=== PATIENT | male | born 1995 | race Caucasian/White ===

== ENCOUNTER → 2021-09-05 | Outpatient (CLI) | payer OTHER | LOC: M RAD 12:51 | PROVIDERS: ATTEND Orthopaedic Surgery | DX: M51.26 Other intervertebral disc displacement, lumbar region (principal) ==

== ENCOUNTER 2022-10-05 15:04 | Inpatient (IN) | payer OTHER ==
[~2022-10-05] VITALS: Ht 193 cm; Wt 99.8 kg
[2022-10-05] VITALS (11 sets, daily range): BP systolic 116–170; BP diastolic 62–85; O2SAT 100
[2022-10-05] MEDS ORDERED: ACE65ERTAB PO (15:16)
[2022-10-05] MEDS ORDERED: GABA-283 PO (15:16)
[2022-10-05] MEDS ORDERED: MIDAZOLAM 5MG 5ML VIAL (FOR CHEST TUBE INSERTIONS) IV STA (16:11)
[2022-10-05 16:13] LABS: BASO # 0.1 10^3/uL (0.0-0.2); BASO % 0.5 % (0.0-1.0); EOS # 0.1 10^3/uL (0.0-0.5); EOS % 0.8 % (0.0-3.0); HEMATOCRIT 47.8 % (42.0-52.0); HEMOGLOBIN 15.7 g/dl (13.5-17.5); LYMPH # 2.3 10^3/uL (1.5-5.0); MEAN CORPUSCULAR HEMOGLOBIN 30.5 pg (27.0-33.0); MEAN CORPUSCULAR HGB CONC 32.8 g/dl (32.0-36.5); MONO # 0.7 10^3/uL (0.0-0.8); MONO % 6.8 % (2.0-8.0); NEUTROPHILS # 6.5 10^3/uL (1.5-8.5); NEUTROPHILS % 67.6 % (36.0-66.0); PLATELET COUNT, AUTOMATED 284 10^3/uL (150-450); RED BLOOD COUNT 5.14 10^6/uL (4.30-6.10); WHITE BLOOD COUNT 9.6 10^3/uL (4.0-10.0)
[2022-10-05] MEDS ORDERED: LIDOCAINE 1% MDV 20ML VIAL SC PRN (16:15)
[2022-10-05] MEDS ORDERED: flumazeniL 0.5MG/5ML VIAL IV PRN (16:15)
[2022-10-05] MEDS ORDERED: PERCOCET 5MG/325MG TAB PO PRN ×3 (16:30→16:35)
[2022-10-05] MEDS ORDERED: BISACODYL 10MG SUPP PR PRN (16:30)
[2022-10-05] MEDS ORDERED: LEVALBUTEROL 1.25MG 0.5ML CONCENTRATE NEB NEB PRN (16:30)
[2022-10-05] MEDS ORDERED: ONDANSETRON 4MG 2ML VIAL IV PRN (16:30)
[2022-10-05] MEDS ORDERED: KCL 20MEQ IN D5/NS 1000ML 1,000 ML IV SCH (16:30)
[2022-10-05] MEDS ORDERED: ACETAMINOPHEN TAB 650MG DOSE (2X325MG) PO PRN (16:30)
[2022-10-05 16:35] LABS: ALBUMIN 4.3 G/DL (3.2-5.2); ALKALINE PHOSPHATASE 62 U/L (46-116); ALT/SGPT 20 U/L (7.0-40); AST/SGOT 17 U/L (<34); BILIRUBIN,DIRECT 0.1 MG/DL (<0.4); BILIRUBIN,TOTAL 0.4 MG/DL (0.3-1.2); BLOOD UREA NITROGEN 13 MG/DL (9-23); CALCIUM LEVEL 9.2 MG/DL (8.5-10.1); CARBON DIOXIDE LEVEL 26 MMOL/L (20-31); CHLORIDE LEVEL 105 MMOL/L (98-107); CREATININE FOR GFR 1.21 MG/DL (0.70-1.30); GLOMERULAR FILTRATION RATE > 60.0 (>60); GLUCOSE, FASTING 82 MG/DL (60-100); POTASSIUM SERUM 3.9 MMOL/L (3.5-5.1); SODIUM LEVEL 142 MMOL/L (136-145); TOTAL PROTEIN 7.3 G/DL (5.7-8.2)
[2022-10-05] MEDS ORDERED: MORPHINE 2 MG/ML 1ML VIAL IV PRN (16:35)
[2022-10-05 16:47] LABS: RSV AMPLIFICATION NEGATIVE (NEGATIVE)
[2022-10-05] MEDS ORDERED: MIDAZOLAM INJ 2MG/2ML VIAL As Ordered ONE ×2 (16:47→16:48)
[2022-10-05] MEDS ORDERED: MIDAZOLAM INJ 2MG/2ML VIAL IV ONE ×2 (17:15)
[2022-10-05] MEDS: KETOROLAC 30 MG/ML 1ML VIAL IV SCH ×2 (17:21→23:36)
[2022-10-05 17:51] LABS: ABG BASE EXCESS 0.9 (-2.0-2.0); ABG HCO3 25.5 MEQ/L (22.0-26.0); ABG O2 SATURATION 99.2 % (95.0-99.0); ABG PARTIAL PRESSURE CO2 40.7 mmHg (35.0-45.0); ABG PARTIAL PRESSURE O2 167.8 mmHg (75.0-100.0); ABG STANDARD HCO3 25.3 MEQ/L (22.0-26.0); ABG TOTAL CO2 26.8 MEQ/L (22.0-29.0); ABG pH (ARTERIAL) 7.415 UNITS (7.350-7.450)
[2022-10-05] MEDS: LEVALBUTEROL 1.25MG 0.5ML CONCENTRATE NEB NEB SCH (19:46)
[2022-10-05] MEDS: HEPARIN SOD (PORCINE) 5000UNITS/ML 1ML VIAL/SYRINGE SC SCH (20:30)
[2022-10-05] MEDS: DOCUSATE SODIUM 100MG CAPSULE PO SCH (20:30)
[2022-10-06] MEDS: LEVALBUTEROL 1.25MG 0.5ML CONCENTRATE NEB NEB SCH ×4 (01:17→20:00)
[2022-10-06 04:00] VITALS: BP 131/69
[2022-10-06 05:25] LABS: BASO % 0.3 % (0.0-1.0); EOS # 0.1 10^3/uL (0.0-0.5); EOS % 0.6 % (0.0-3.0); HEMATOCRIT 47.4 % (42.0-52.0); HEMOGLOBIN 15.5 g/dl (13.5-17.5); LYMPH # 2.2 10^3/uL (1.5-5.0); LYMPH % 20.5 % (24.0-44.0); MEAN CORPUSCULAR HEMOGLOBIN 30.7 pg (27.0-33.0); MEAN CORPUSCULAR HGB CONC 32.7 g/dl (32.0-36.5); MEAN CORPUSCULAR VOLUME 93.9 fl (80.0-96.0); MONO # 0.8 10^3/uL (0.0-0.8); MONO % 7.6 % (2.0-8.0); NEUTROPHILS # 7.5 10^3/uL (1.5-8.5); NEUTROPHILS % 70.6 % (36.0-66.0); PLATELET COUNT, AUTOMATED 230 10^3/uL (150-450); RED BLOOD COUNT 5.05 10^6/uL (4.30-6.10); WHITE BLOOD COUNT 10.5 10^3/uL (4.0-10.0)
[2022-10-06] MEDS: KETOROLAC 30 MG/ML 1ML VIAL IV SCH ×3 (05:43→18:20)
[2022-10-06 05:49] LABS: BLOOD UREA NITROGEN 13 MG/DL (9-23); CALCIUM LEVEL 8.9 MG/DL (8.5-10.1); CARBON DIOXIDE LEVEL 27 MMOL/L (20-31); CHLORIDE LEVEL 105 MMOL/L (98-107); CREATININE FOR GFR 1.21 MG/DL (0.70-1.30); GLOMERULAR FILTRATION RATE > 60.0 (>60); GLUCOSE, FASTING 95 MG/DL (60-100); POTASSIUM SERUM 4.6 MMOL/L (3.5-5.1); SODIUM LEVEL 139 MMOL/L (136-145)
[2022-10-06 05:51] LABS: ABG BASE EXCESS -1.7 (-2.0-2.0); ABG HCO3 22.6 MEQ/L (22.0-26.0); ABG O2 SATURATION 97.4 % (95.0-99.0); ABG PARTIAL PRESSURE CO2 37.3 mmHg (35.0-45.0); ABG STANDARD HCO3 23.1 MEQ/L (22.0-26.0); ABG TOTAL CO2 23.8 MEQ/L (22.0-29.0); ABG pH (ARTERIAL) 7.401 UNITS (7.350-7.450)
[2022-10-06 07:40] VITALS: BP 137/67
[2022-10-06] MEDS: DOCUSATE SODIUM 100MG CAPSULE PO SCH ×2 (08:17→20:36)
[2022-10-06] MEDS: HEPARIN SOD (PORCINE) 5000UNITS/ML 1ML VIAL/SYRINGE SC SCH ×2 (08:18→20:36)
[2022-10-06] MEDS: PANTOPRAZOLE 40MG TAB (PROTONIX) PO SCH (08:18)
[2022-10-06] MEDS ORDERED: MOM 30ML SUSPENSION UDC PO SCH (09:00)
[2022-10-06 11:43] VITALS: BP 136/65
[2022-10-06] MEDS ORDERED: FUROSEMIDE 20MG/2ML VIAL IV ONE (12:00)
[2022-10-06] MEDS ORDERED: GABA-282 PO (12:13)
[2022-10-06] MEDS ORDERED: HOME MED LIST COMPLETE! XX SCH (12:15)
[2022-10-06] MEDS ORDERED: ACET-683 PO (12:17)
[2022-10-06] MEDS: GABAPENTIN 300 MG CAP PO SCH ×2 (15:29→20:35)
[2022-10-06 16:00] VITALS: BP 138/65
[2022-10-06 20:00] VITALS: BP 135/61
[2022-10-06 23:29] VITALS: BP 121/56
[2022-10-07] MEDS: KETOROLAC 30 MG/ML 1ML VIAL IV SCH ×2 (00:08→06:29)
[2022-10-07] MEDS: LEVALBUTEROL 1.25MG 0.5ML CONCENTRATE NEB NEB SCH ×4 (01:27→20:17)
[2022-10-07 03:30] VITALS: BP 114/56
[2022-10-07 06:08] LABS: BASO % 0.4 % (0.0-1.0); EOS # 0.1 10^3/uL (0.0-0.5); HEMATOCRIT 45.2 % (42.0-52.0); HEMOGLOBIN 14.9 g/dl (13.5-17.5); LYMPH % 28.3 % (24.0-44.0); MEAN CORPUSCULAR VOLUME 94.2 fl (80.0-96.0); MONO # 0.7 10^3/uL (0.0-0.8); MONO % 10.7 % (2.0-8.0); NEUTROPHILS % 58.3 % (36.0-66.0); PLATELET COUNT, AUTOMATED 225 10^3/uL (150-450); WHITE BLOOD COUNT 6.9 10^3/uL (4.0-10.0)
[2022-10-07 06:28] LABS: BLOOD UREA NITROGEN 15 MG/DL (9-23); CARBON DIOXIDE LEVEL 29 MMOL/L (20-31); CHLORIDE LEVEL 107 MMOL/L (98-107); GLOMERULAR FILTRATION RATE > 60.0 (>60); GLUCOSE, FASTING 92 MG/DL (60-100); POTASSIUM SERUM 4.5 MMOL/L (3.5-5.1); SODIUM LEVEL 142 MMOL/L (136-145)
[2022-10-07 07:15] VITALS: BP 115/69
[2022-10-07] MEDS: HEPARIN SOD (PORCINE) 5000UNITS/ML 1ML VIAL/SYRINGE SC SCH ×2 (08:28→20:10)
[2022-10-07] MEDS: PANTOPRAZOLE 40MG TAB (PROTONIX) PO SCH (08:29)
[2022-10-07] MEDS: DOCUSATE SODIUM 100MG CAPSULE PO SCH ×2 (08:29→20:07)
[2022-10-07] MEDS: GABAPENTIN 300 MG CAP PO SCH ×2 (08:29→20:10)
[2022-10-07 10:48] LABS: INR 1.03; PROTHROMBIN TIME 13.7 SECONDS (12.5-14.5)
[2022-10-07 10:49] LABS: PARTIAL THROMBOPLASTIN TIME 30.9 SECONDS (24.8-34.2)
[2022-10-07 11:25] VITALS: BP 138/67
[2022-10-07 15:19] VITALS: BP 122/61
[2022-10-07 20:00] VITALS: BP 138/62
[2022-10-08] VITALS: BP 114/59
[2022-10-08] MEDS: LEVALBUTEROL 1.25MG 0.5ML CONCENTRATE NEB NEB SCH ×4 (02:00→19:46)
[2022-10-08 04:00] VITALS: BP 117/89
[2022-10-08 07:03] LABS: BASO % 0.5 % (0.0-1.0); EOS # 0.1 10^3/uL (0.0-0.5); EOS % 2.4 % (0.0-3.0); HEMOGLOBIN 14.6 g/dl (13.5-17.5); LYMPH # 1.7 10^3/uL (1.5-5.0); LYMPH % 28.9 % (24.0-44.0); MEAN CORPUSCULAR HEMOGLOBIN 30.5 pg (27.0-33.0); MEAN CORPUSCULAR HGB CONC 32.4 g/dl (32.0-36.5); MEAN CORPUSCULAR VOLUME 94.1 fl (80.0-96.0); MONO # 0.5 10^3/uL (0.0-0.8); MONO % 8.4 % (2.0-8.0); NEUTROPHILS # 3.5 10^3/uL (1.5-8.5); NEUTROPHILS % 59.6 % (36.0-66.0); PLATELET COUNT, AUTOMATED 224 10^3/uL (150-450); RED BLOOD COUNT 4.78 10^6/uL (4.30-6.10); WHITE BLOOD COUNT 5.9 10^3/uL (4.0-10.0)
[2022-10-08 07:35] LABS: BLOOD UREA NITROGEN 11 MG/DL (9-23); CALCIUM LEVEL 9.2 MG/DL (8.5-10.1); CARBON DIOXIDE LEVEL 28 MMOL/L (20-31); CHLORIDE LEVEL 107 MMOL/L (98-107); GLOMERULAR FILTRATION RATE > 60.0 (>60); GLUCOSE, FASTING 90 MG/DL (60-100); POTASSIUM SERUM 4.5 MMOL/L (3.5-5.1); SODIUM LEVEL 140 MMOL/L (136-145)
[2022-10-08 08:00] VITALS: BP 131/97
[2022-10-08] MEDS: DOCUSATE SODIUM 100MG CAPSULE PO SCH ×2 (09:00→20:06)
[2022-10-08] MEDS: PANTOPRAZOLE 40MG TAB (PROTONIX) PO SCH (09:29)
[2022-10-08] MEDS: HEPARIN SOD (PORCINE) 5000UNITS/ML 1ML VIAL/SYRINGE SC SCH (09:29)
[2022-10-08] MEDS: GABAPENTIN 300 MG CAP PO SCH ×2 (09:30→20:06)
[2022-10-08 12:00] VITALS: BP 141/69
[2022-10-08 16:00] VITALS: BP 145/67
[2022-10-08 19:29] VITALS: BP 142/65
[2022-10-09] VITALS (39 sets, daily range): BP systolic 87–156; BP diastolic 51–81
[2022-10-09] MEDS: LEVALBUTEROL 1.25MG 0.5ML CONCENTRATE NEB NEB SCH ×2 (01:19→08:27)
[2022-10-09 07:24] LABS: BASO # 0.1 10^3/uL (0.0-0.2); BASO % 0.9 % (0.0-1.0); EOS # 0.2 10^3/uL (0.0-0.5); LYMPH # 1.7 10^3/uL (1.5-5.0); LYMPH % 31.4 % (24.0-44.0); MEAN CORPUSCULAR HEMOGLOBIN 30.8 pg (27.0-33.0); MEAN CORPUSCULAR HGB CONC 32.6 g/dl (32.0-36.5); MEAN CORPUSCULAR VOLUME 94.7 fl (80.0-96.0); MONO # 0.4 10^3/uL (0.0-0.8); MONO % 8.2 % (2.0-8.0); NEUTROPHILS % 56.3 % (36.0-66.0); PLATELET COUNT, AUTOMATED 221 10^3/uL (150-450); RED BLOOD COUNT 4.54 10^6/uL (4.30-6.10); WHITE BLOOD COUNT 5.4 10^3/uL (4.0-10.0)
[2022-10-09 07:51] LABS: BLOOD UREA NITROGEN 13 MG/DL (9-23); CALCIUM LEVEL 8.8 MG/DL (8.5-10.1); CARBON DIOXIDE LEVEL 29 MMOL/L (20-31); CHLORIDE LEVEL 106 MMOL/L (98-107); CREATININE FOR GFR 1.16 MG/DL (0.70-1.30); GLOMERULAR FILTRATION RATE > 60.0 (>60); GLUCOSE, FASTING 90 MG/DL (60-100); POTASSIUM SERUM 4.6 MMOL/L (3.5-5.1); SODIUM LEVEL 140 MMOL/L (136-145)
[2022-10-09] MEDS: ALBUTEROL SULFATE 2.5MG/0.5ML INH NEB SOLN NEB SCH ×3 (08:00→21:00)
[2022-10-09] MEDS: DOCUSATE SODIUM 100MG CAPSULE PO SCH ×2 (09:00→21:40)
[2022-10-09] MEDS: GABAPENTIN 300 MG CAP PO SCH ×2 (09:00→21:40)
[2022-10-09] MEDS: PANTOPRAZOLE 40MG TAB (PROTONIX) PO SCH (09:00)
[2022-10-09] MEDS ORDERED: ceFAZolin SOD 2 GM in IV 1 EA IV ONE (09:45)
[2022-10-09] MEDS ORDERED: CETACAINE SPRAY 5GM As Ordered ONE (13:13)
[2022-10-09] MEDS ORDERED: MUPIROCIN 2% OINT 22 GM TUBE As Ordered ONE (13:13)
[2022-10-09] MEDS ORDERED: BUPIVACAINE LIPOSOME/PF 1.3% 20ML VIAL (13.3MG/ML)(EXPAREL) As Ordered ONE (13:14)
[2022-10-09] MEDS ORDERED: BUPIVACAINE HCL 0.5% 30ML VIAL As Ordered ONE (13:14)
[2022-10-09] MEDS ORDERED: STERILE TALC POWDER 3GM VIAL As Ordered ONE (13:24)
[2022-10-09] MEDS ORDERED: TALCAIR POWDER BLOWER (CAN ONLY BE USED WITH 3GM TALC VIAL) XX ONE (13:24)
[2022-10-09] MEDS ORDERED: ROCURONIUM BROMIDE 50MG/5ML VIAL As Ordered ONE ×2 (13:52→16:29)
[2022-10-09] MEDS ORDERED: SUGAMMADEX SODIUM 500 MG/5 ML VIAL (BRIDION) As Ordered ONE (13:52)
[2022-10-09] MEDS ORDERED: propofoL 200 MG/20 ML VIAL As Ordered ONE (13:52)
[2022-10-09] MEDS ORDERED: KETOROLAC 60MG 2ML VIAL As Ordered ONE (13:52)
[2022-10-09] MEDS ORDERED: LIDOCAINE 2% 100MG/5ML SDV (FOR ANES.) As Ordered ONE (13:52)
[2022-10-09] MEDS ORDERED: ONDANSETRON 4MG 2ML VIAL As Ordered ONE (13:52)
[2022-10-09] MEDS ORDERED: MIDAZOLAM INJ 2MG/2ML VIAL As Ordered ONE (14:03)
[2022-10-09] MEDS ORDERED: fentaNYL 250 MCG/5 ML INJECTION As Ordered ONE (14:03)
[2022-10-09] MEDS ORDERED: ONDANSETRON 4MG 2ML VIAL IV PRN ×4 (14:10→18:15)
[2022-10-09] MEDS ORDERED: METOCLOPRAMIDE INJ 10MG/2ML VIAL IV PRN ×2 (14:10→17:50)
[2022-10-09] MEDS ORDERED: NALBUPHINE HCL 10 MG/ML 1ML AMP IV PRN ×2 (14:10→17:50)
[2022-10-09] MEDS ORDERED: EPIDURAL/PCA KEYS XX PRN ×2 (14:10→17:50)
[2022-10-09] MEDS ORDERED: diphenhydrAMINE 50MG/ML VIAL IV PRN ×2 (14:10→17:50)
[2022-10-09] MEDS ORDERED: NALOXONE INJ 0.4MG/1ML VIAL IV PRN ×2 (14:10→17:50)
[2022-10-09] MEDS ORDERED: LR 1,000 ML IV SCH ×3 (14:30→18:15)
[2022-10-09] MEDS ORDERED: ceFAZolin 2 GM/D5W 50 ML IV BAG As Ordered ONE (14:44)
[2022-10-09] MEDS: fentaNYL 100 MCG/2 ML INJECTION IV PRN ×5 (15:17→18:21)
[2022-10-09] MEDS: MIDAZOLAM INJ 2MG/2ML VIAL IV PRN ×3 (15:21→18:23)
[2022-10-09] MEDS ORDERED: ACETAMINOPHEN 1000MG 100ML IV BAG As Ordered ONE (16:25)
[2022-10-09] MEDS ORDERED: HYDROmorphone HCL 2MG/ML 1ML VIAL As Ordered ONE (17:46)
[2022-10-09] MEDS ORDERED: fentaNYL 100 MCG/2 ML INJECTION IV PRN ×2 (17:50→18:15)
[2022-10-09] MEDS ORDERED: oxyCODONE 5MG TAB PO PRN ×2 (17:50→18:15)
[2022-10-09] MEDS ORDERED: FENTANYL/BUPIVACAINE/NACL BAG 250 ML EPIDURAL SCH ×2 (17:50→19:13)
[2022-10-09] MEDS: ceFAZolin SOD 1 GM in D5W MINI-BAG PLUS 50 ML IV SCH (18:00)
[2022-10-09] MEDS: KETOROLAC 30 MG/ML 1ML VIAL IV SCH (18:00)
[2022-10-09] MEDS: FENTANYL/BUPIVACAINE/NACL BAG 250 ML EPIDURAL SCH (18:06)
[2022-10-09 18:11] LABS: ABG BASE EXCESS -1.8 (-2.0-2.0); ABG HCO3 25.4 MEQ/L (22.0-26.0); ABG O2 SATURATION 95.6 % (95.0-99.0); ABG PARTIAL PRESSURE CO2 52.5 mmHg (35.0-45.0); ABG PARTIAL PRESSURE O2 84.4 mmHg (75.0-100.0); ABG pH (ARTERIAL) 7.303 UNITS (7.350-7.450)
[2022-10-09] MEDS ORDERED: HYDROMORPHONE HCL 0.5 MG/ 0.5 ML SYRINGE IV PRN (18:15)
[2022-10-09 18:17] LABS: BASO % 0.5 % (0.0-1.0); EOS # 0.1 10^3/uL (0.0-0.5); EOS % 1.5 % (0.0-3.0); HEMATOCRIT 44.7 % (42.0-52.0); HEMOGLOBIN 14.6 g/dl (13.5-17.5); LYMPH # 1.4 10^3/uL (1.5-5.0); LYMPH % 18.1 % (24.0-44.0); MEAN CORPUSCULAR HEMOGLOBIN 30.5 pg (27.0-33.0); MEAN CORPUSCULAR HGB CONC 32.7 g/dl (32.0-36.5); MEAN CORPUSCULAR VOLUME 93.5 fl (80.0-96.0); MONO # 0.3 10^3/uL (0.0-0.8); MONO % 3.8 % (2.0-8.0); NEUTROPHILS # 5.7 10^3/uL (1.5-8.5); NEUTROPHILS % 75.7 % (36.0-66.0); PLATELET COUNT, AUTOMATED 216 10^3/uL (150-450); RED BLOOD COUNT 4.78 10^6/uL (4.30-6.10); WHITE BLOOD COUNT 7.6 10^3/uL (4.0-10.0)
[2022-10-09] MEDS: KCL 20MEQ IN D5/NS 1000ML 1,000 ML IV SCH (18:25)
[2022-10-09 18:48] LABS: BLOOD UREA NITROGEN 13 MG/DL (9-23); CALCIUM LEVEL 8.4 MG/DL (8.5-10.1); CARBON DIOXIDE LEVEL 28 MMOL/L (20-31); CHLORIDE LEVEL 106 MMOL/L (98-107); CREATININE FOR GFR 1.03 MG/DL (0.70-1.30); GLOMERULAR FILTRATION RATE > 60.0 (>60); GLUCOSE, FASTING 122 MG/DL (60-100); POTASSIUM SERUM 4.7 MMOL/L (3.5-5.1); SODIUM LEVEL 138 MMOL/L (136-145)
[2022-10-09 19:11] LABS: ABG BASE EXCESS -2.2 (-2.0-2.0); ABG HCO3 24.5 MEQ/L (22.0-26.0); ABG O2 LITER FLOW 2; ABG PARTIAL PRESSURE O2 120.4 mmHg (75.0-100.0); ABG STANDARD HCO3 22.7 MEQ/L (22.0-26.0); ABG pH (ARTERIAL) 7.317 UNITS (7.350-7.450)
[2022-10-10] VITALS (21 sets, daily range): BP systolic 95–135; BP diastolic 51–69
[2022-10-10] MEDS: KETOROLAC 30 MG/ML 1ML VIAL IV SCH ×5 (00:40→23:57)
[2022-10-10] MEDS: ALBUTEROL SULFATE 2.5MG/0.5ML INH NEB SOLN NEB SCH ×4 (01:52→19:22)
[2022-10-10] MEDS: ceFAZolin SOD 1 GM in D5W MINI-BAG PLUS 50 ML IV SCH ×3 (02:22→18:14)
[2022-10-10 05:49] LABS: BASO % 0.1 % (0.0-1.0); HEMATOCRIT 41.6 % (42.0-52.0); HEMOGLOBIN 13.8 g/dl (13.5-17.5); LYMPH # 0.7 10^3/uL (1.5-5.0); LYMPH % 6.5 % (24.0-44.0); MEAN CORPUSCULAR HEMOGLOBIN 30.8 pg (27.0-33.0); MEAN CORPUSCULAR HGB CONC 33.2 g/dl (32.0-36.5); MEAN CORPUSCULAR VOLUME 92.9 fl (80.0-96.0); MONO # 0.8 10^3/uL (0.0-0.8); MONO % 6.6 % (2.0-8.0); NEUTROPHILS # 9.8 10^3/uL (1.5-8.5); NEUTROPHILS % 86.3 % (36.0-66.0); PLATELET COUNT, AUTOMATED 228 10^3/uL (150-450); RED BLOOD COUNT 4.48 10^6/uL (4.30-6.10); WHITE BLOOD COUNT 11.4 10^3/uL (4.0-10.0)
[2022-10-10 06:02] LABS: ABG BASE EXCESS -1.9 (-2.0-2.0); ABG O2 SATURATION 98.7 % (95.0-99.0); ABG PARTIAL PRESSURE CO2 39.7 mmHg (35.0-45.0); ABG PARTIAL PRESSURE O2 129.2 mmHg (75.0-100.0); ABG STANDARD HCO3 22.9 MEQ/L (22.0-26.0); ABG TOTAL CO2 24.2 MEQ/L (22.0-29.0)
[2022-10-10 06:27] LABS: BLOOD UREA NITROGEN 9 MG/DL (9-23); CALCIUM LEVEL 5.7 MG/DL (8.5-10.1); CARBON DIOXIDE LEVEL 20 MMOL/L (20-31); CHLORIDE LEVEL 114 MMOL/L (98-107); CREATININE FOR GFR 0.66 MG/DL (0.70-1.30); GLOMERULAR FILTRATION RATE > 60.0 (>60); GLUCOSE, FASTING 102 MG/DL (60-100); POTASSIUM SERUM 3.2 MMOL/L (3.5-5.1); SODIUM LEVEL 142 MMOL/L (136-145)
[2022-10-10] MEDS ORDERED: CALCIUM GLUCONATE 1,000 MG in D5W MINI-BAG PLUS 100 ML IV SCH (07:00)
[2022-10-10] MEDS ORDERED: POTASSIUM CHLORIDE 10% LIQ 20MEQ/15ML UDC PO ONE (07:00)
[2022-10-10] MEDS: KCL 20MEQ IN D5/NS 1000ML 1,000 ML IV SCH (07:57)
[2022-10-10 08:42] LABS: BLOOD UREA NITROGEN 13 MG/DL (9-23); CALCIUM LEVEL 9.3 MG/DL (8.5-10.1); CARBON DIOXIDE LEVEL 27 MMOL/L (20-31); CHLORIDE LEVEL 102 MMOL/L (98-107); CREATININE FOR GFR 0.93 MG/DL (0.70-1.30); GLOMERULAR FILTRATION RATE > 60.0 (>60); GLUCOSE, FASTING 125 MG/DL (60-100); POTASSIUM SERUM 4.5 MMOL/L (3.5-5.1); SODIUM LEVEL 136 MMOL/L (136-145)
[2022-10-10] MEDS: PANTOPRAZOLE 40MG TAB (PROTONIX) PO SCH (08:48)
[2022-10-10] MEDS: HEPARIN SOD (PORCINE) 5000UNITS/ML 1ML VIAL/SYRINGE SC SCH ×2 (08:48→20:18)
[2022-10-10] MEDS: MOM 30ML SUSPENSION UDC PO SCH (08:48)
[2022-10-10] MEDS: GABAPENTIN 300 MG CAP PO SCH ×2 (08:48→20:18)
[2022-10-10] MEDS: DOCUSATE SODIUM 100MG CAPSULE PO SCH ×2 (08:48→20:19)
[2022-10-10] MEDS: FENTANYL/BUPIVACAINE/NACL BAG 250 ML EPIDURAL SCH (10:27)
[2022-10-10 14:03] LABS: BLOOD UREA NITROGEN 14 MG/DL (9-23); CALCIUM LEVEL 8.9 MG/DL (8.5-10.1); CARBON DIOXIDE LEVEL 25 MMOL/L (20-31); CHLORIDE LEVEL 104 MMOL/L (98-107); CREATININE FOR GFR 1.02 MG/DL (0.70-1.30); GLOMERULAR FILTRATION RATE > 60.0 (>60); GLUCOSE, FASTING 107 MG/DL (60-100); POTASSIUM SERUM 4.3 MMOL/L (3.5-5.1); SODIUM LEVEL 137 MMOL/L (136-145)
[2022-10-11] VITALS (10 sets, daily range): BP systolic 104–128; BP diastolic 52–66
[2022-10-11] MEDS: ALBUTEROL SULFATE 2.5MG/0.5ML INH NEB SOLN NEB SCH ×4 (01:19→20:02)
[2022-10-11] MEDS: FENTANYL/BUPIVACAINE/NACL BAG 250 ML EPIDURAL SCH ×2 (01:44→17:22)
[2022-10-11] MEDS: ceFAZolin SOD 1 GM in D5W MINI-BAG PLUS 50 ML IV SCH ×2 (01:46→09:03)
[2022-10-11 05:37] LABS: BASO % 0.2 % (0.0-1.0); EOS # 0.1 10^3/uL (0.0-0.5); EOS % 0.8 % (0.0-3.0); HEMATOCRIT 42.2 % (42.0-52.0); HEMOGLOBIN 13.4 g/dl (13.5-17.5); LYMPH # 1.9 10^3/uL (1.5-5.0); LYMPH % 21.1 % (24.0-44.0); MEAN CORPUSCULAR HEMOGLOBIN 30.3 pg (27.0-33.0); MEAN CORPUSCULAR HGB CONC 31.8 g/dl (32.0-36.5); MEAN CORPUSCULAR VOLUME 95.5 fl (80.0-96.0); MONO % 11.9 % (2.0-8.0); NEUTROPHILS # 5.7 10^3/uL (1.5-8.5); NEUTROPHILS % 65.5 % (36.0-66.0); PLATELET COUNT, AUTOMATED 199 10^3/uL (150-450); RED BLOOD COUNT 4.42 10^6/uL (4.30-6.10); WHITE BLOOD COUNT 8.8 10^3/uL (4.0-10.0)
[2022-10-11 06:02] LABS: BLOOD UREA NITROGEN 18 MG/DL (9-23); CALCIUM LEVEL 8.9 MG/DL (8.5-10.1); CARBON DIOXIDE LEVEL 29 MMOL/L (20-31); CHLORIDE LEVEL 104 MMOL/L (98-107); CREATININE FOR GFR 1.13 MG/DL (0.70-1.30); GLOMERULAR FILTRATION RATE > 60.0 (>60); GLUCOSE, FASTING 92 MG/DL (60-100); POTASSIUM SERUM 4.5 MMOL/L (3.5-5.1); SODIUM LEVEL 138 MMOL/L (136-145)
[2022-10-11] MEDS: KETOROLAC 30 MG/ML 1ML VIAL IV SCH ×3 (06:25→17:17)
[2022-10-11] MEDS: MOM 30ML SUSPENSION UDC PO SCH (08:32)
[2022-10-11] MEDS: DOCUSATE SODIUM 100MG CAPSULE PO SCH ×2 (08:32→20:41)
[2022-10-11] MEDS: GABAPENTIN 300 MG CAP PO SCH ×2 (09:02→20:41)
[2022-10-11] MEDS: HEPARIN SOD (PORCINE) 5000UNITS/ML 1ML VIAL/SYRINGE SC SCH ×2 (09:02→20:41)
[2022-10-11] MEDS: PANTOPRAZOLE 40MG TAB (PROTONIX) PO SCH (09:02)
[2022-10-12] VITALS (9 sets, daily range): BP systolic 114–145; BP diastolic 57–70
[2022-10-12] MEDS: KETOROLAC 30 MG/ML 1ML VIAL IV SCH ×4 (00:11→17:39)
[2022-10-12] MEDS: ALBUTEROL SULFATE 2.5MG/0.5ML INH NEB SOLN NEB SCH ×4 (01:28→19:28)
[2022-10-12 05:55] LABS: BASO % 0.6 % (0.0-1.0); EOS # 0.1 10^3/uL (0.0-0.5); EOS % 2.1 % (0.0-3.0); HEMATOCRIT 32.8 % (42.0-52.0); LYMPH # 1.6 10^3/uL (1.5-5.0); LYMPH % 34.1 % (24.0-44.0); MEAN CORPUSCULAR HGB CONC 32.3 g/dl (32.0-36.5); MEAN CORPUSCULAR VOLUME 95.9 fl (80.0-96.0); MONO # 0.6 10^3/uL (0.0-0.8); MONO % 12.6 % (2.0-8.0); NEUTROPHILS # 2.4 10^3/uL (1.5-8.5); NEUTROPHILS % 50.4 % (36.0-66.0); PLATELET COUNT, AUTOMATED 167 10^3/uL (150-450); RED BLOOD COUNT 3.42 10^6/uL (4.30-6.10); WHITE BLOOD COUNT 4.8 10^3/uL (4.0-10.0)
[2022-10-12 05:58] LABS: HEMOGLOBIN 10.6 g/dl (13.5-17.5)
[2022-10-12] MEDS: FENTANYL/BUPIVACAINE/NACL BAG 250 ML EPIDURAL SCH ×2 (06:12→20:16)
[2022-10-12 07:32] LABS: BLOOD UREA NITROGEN 12 MG/DL (9-23); CALCIUM LEVEL 8.9 MG/DL (8.5-10.1); CARBON DIOXIDE LEVEL 30 MMOL/L (20-31); CHLORIDE LEVEL 103 MMOL/L (98-107); CREATININE FOR GFR 0.97 MG/DL (0.70-1.30); GLOMERULAR FILTRATION RATE > 60.0 (>60); GLUCOSE, FASTING 91 MG/DL (60-100); POTASSIUM SERUM 4.2 MMOL/L (3.5-5.1); SODIUM LEVEL 137 MMOL/L (136-145)
[2022-10-12 08:38] LABS: BASO % 0.7 % (0.0-1.0); EOS # 0.1 10^3/uL (0.0-0.5); EOS % 2.3 % (0.0-3.0); HEMATOCRIT 41.6 % (42.0-52.0); LYMPH # 1.7 10^3/uL (1.5-5.0); LYMPH % 28.9 % (24.0-44.0); MEAN CORPUSCULAR HEMOGLOBIN 31.4 pg (27.0-33.0); MEAN CORPUSCULAR HGB CONC 32.9 g/dl (32.0-36.5); MEAN CORPUSCULAR VOLUME 95.2 fl (80.0-96.0); MONO # 0.7 10^3/uL (0.0-0.8); MONO % 11.7 % (2.0-8.0); NEUTROPHILS # 3.4 10^3/uL (1.5-8.5); NEUTROPHILS % 56.2 % (36.0-66.0); PLATELET COUNT, AUTOMATED 214 10^3/uL (150-450); RED BLOOD COUNT 4.37 10^6/uL (4.30-6.10)
[2022-10-12] MEDS: HEPARIN SOD (PORCINE) 5000UNITS/ML 1ML VIAL/SYRINGE SC SCH ×2 (08:56→20:30)
[2022-10-12] MEDS: PANTOPRAZOLE 40MG TAB (PROTONIX) PO SCH (08:56)
[2022-10-12] MEDS: GABAPENTIN 300 MG CAP PO SCH ×2 (08:56→20:30)
[2022-10-12] MEDS: DOCUSATE SODIUM 100MG CAPSULE PO SCH ×2 (08:56→21:00)
[2022-10-12] MEDS: MOM 30ML SUSPENSION UDC PO SCH (08:57)
[2022-10-12 09:10] LABS: HEMOGLOBIN 13.7 g/dl (13.5-17.5)
[2022-10-13] MEDS: KETOROLAC 30 MG/ML 1ML VIAL IV SCH ×4 (00:35→17:15)
[2022-10-13] MEDS: ALBUTEROL SULFATE 2.5MG/0.5ML INH NEB SOLN NEB SCH ×4 (01:01→19:27)
[2022-10-13 04:00] VITALS: BP 117/64
[2022-10-13 06:52] LABS: BASO # 0.1 10^3/uL (0.0-0.2); BASO % 1.1 % (0.0-1.0); EOS # 0.2 10^3/uL (0.0-0.5); HEMATOCRIT 41.7 % (42.0-52.0); HEMOGLOBIN 13.6 g/dl (13.5-17.5); LYMPH # 1.8 10^3/uL (1.5-5.0); LYMPH % 39.1 % (24.0-44.0); MEAN CORPUSCULAR HEMOGLOBIN 30.9 pg (27.0-33.0); MEAN CORPUSCULAR HGB CONC 32.6 g/dl (32.0-36.5); MEAN CORPUSCULAR VOLUME 94.8 fl (80.0-96.0); MONO # 0.6 10^3/uL (0.0-0.8); MONO % 13.4 % (2.0-8.0); NEUTROPHILS # 1.9 10^3/uL (1.5-8.5); NEUTROPHILS % 42.2 % (36.0-66.0); PLATELET COUNT, AUTOMATED 219 10^3/uL (150-450); WHITE BLOOD COUNT 4.6 10^3/uL (4.0-10.0)
[2022-10-13 07:20] LABS: BLOOD UREA NITROGEN 16 MG/DL (9-23); CALCIUM LEVEL 8.9 MG/DL (8.5-10.1); CARBON DIOXIDE LEVEL 34 MMOL/L (20-31); CHLORIDE LEVEL 104 MMOL/L (98-107); CREATININE FOR GFR 1.03 MG/DL (0.70-1.30); GLOMERULAR FILTRATION RATE > 60.0 (>60); GLUCOSE, FASTING 86 MG/DL (60-100); POTASSIUM SERUM 4.7 MMOL/L (3.5-5.1); SODIUM LEVEL 140 MMOL/L (136-145)
[2022-10-13 08:00] VITALS: BP 133/63
[2022-10-13] MEDS: GABAPENTIN 300 MG CAP PO SCH ×2 (08:17→21:56)
[2022-10-13] MEDS: HEPARIN SOD (PORCINE) 5000UNITS/ML 1ML VIAL/SYRINGE SC SCH ×2 (08:17→21:00)
[2022-10-13] MEDS: PANTOPRAZOLE 40MG TAB (PROTONIX) PO SCH (08:17)
[2022-10-13] MEDS: MOM 30ML SUSPENSION UDC PO SCH (08:18)
[2022-10-13] MEDS: DOCUSATE SODIUM 100MG CAPSULE PO SCH ×2 (08:18→21:00)
[2022-10-13 09:06] LABS: AMORPHOUS SEDIMENT MODERATE (NEGATIVE); APPEARANCE, URINE TURBID (CLEAR); BACTERIA, URINE AUTO NEGATIVE (NEGATIVE); BILIRUBIN, URINE AUTO NEGATIVE (NEGATIVE); BLOOD, URINE BLOOD 1+ (NEGATIVE); COLOR, URINE YELLOW (YELLOW); GLUCOSE, URINE (UA) AUTO NEGATIVE (NEGATIVE); KETONE, URINE AUTO NEGATIVE (NEGATIVE); LEUKOCYTE ESTERASE, URINE AUTO NEGATIVE (NEGATIVE); NITRITE, URINE AUTO NEGATIVE (NEGATIVE); PROTEIN, URINE AUTO NEGATIVE (NEGATIVE); RBC, URINE AUTO 30 /HPF (0-3); SPECIFIC GRAVITY URINE AUTO 1.016 (1.002-1.035); SQUAMOUS EPITHELIAL CELL UR AU 0 /HPF (0-6); UROBILINOGEN, URINE AUTO 0.2 mg/dL (0.0-2.0); WBC, URINE AUTO 0 /HPF (0-3)
[2022-10-13] MEDS: FENTANYL/BUPIVACAINE/NACL BAG 250 ML EPIDURAL SCH ×2 (11:45→14:02)
[2022-10-13 12:00] VITALS: BP_SYST 131; BP_SYST 161; BP_DIAS 67
[2022-10-13 13:19] LABS: BLOOD UREA NITROGEN 18 MG/DL (9-23); CALCIUM LEVEL 8.8 MG/DL (8.5-10.1); CARBON DIOXIDE LEVEL 32 MMOL/L (20-31); CHLORIDE LEVEL 102 MMOL/L (98-107); CREATININE FOR GFR 1.04 MG/DL (0.70-1.30); GLOMERULAR FILTRATION RATE > 60.0 (>60); GLUCOSE, FASTING 94 MG/DL (60-100); POTASSIUM SERUM 4.6 MMOL/L (3.5-5.1); SODIUM LEVEL 137 MMOL/L (136-145)
[2022-10-13 16:00] VITALS: BP 128/66
[2022-10-13 20:00] VITALS: BP 146/65
[2022-10-13 23:46] VITALS: BP 128/59
[2022-10-14] MEDS: KETOROLAC 30 MG/ML 1ML VIAL IV SCH ×2 (01:12→06:40)
[2022-10-14] MEDS: ALBUTEROL SULFATE 2.5MG/0.5ML INH NEB SOLN NEB SCH ×2 (01:13→07:29)
[2022-10-14 04:00] VITALS: BP 118/56
[2022-10-14 05:27] LABS: BASO % 0.6 % (0.0-1.0); EOS # 0.2 10^3/uL (0.0-0.5); EOS % 3.7 % (0.0-3.0); HEMOGLOBIN 13.7 g/dl (13.5-17.5); LYMPH # 1.8 10^3/uL (1.5-5.0); LYMPH % 28.4 % (24.0-44.0); MEAN CORPUSCULAR HEMOGLOBIN 30.3 pg (27.0-33.0); MEAN CORPUSCULAR HGB CONC 32.6 g/dl (32.0-36.5); MEAN CORPUSCULAR VOLUME 92.9 fl (80.0-96.0); MONO # 0.6 10^3/uL (0.0-0.8); MONO % 9.2 % (2.0-8.0); NEUTROPHILS # 3.6 10^3/uL (1.5-8.5); NEUTROPHILS % 57.8 % (36.0-66.0); PLATELET COUNT, AUTOMATED 253 10^3/uL (150-450); RED BLOOD COUNT 4.52 10^6/uL (4.30-6.10); WHITE BLOOD COUNT 6.3 10^3/uL (4.0-10.0)
[2022-10-14 05:58] LABS: BLOOD UREA NITROGEN 15 MG/DL (9-23); CALCIUM LEVEL 8.9 MG/DL (8.5-10.1); CARBON DIOXIDE LEVEL 30 MMOL/L (20-31); CHLORIDE LEVEL 105 MMOL/L (98-107); CREATININE FOR GFR 0.97 MG/DL (0.70-1.30); GLOMERULAR FILTRATION RATE > 60.0 (>60); GLUCOSE, FASTING 92 MG/DL (60-100); POTASSIUM SERUM 4.4 MMOL/L (3.5-5.1); SODIUM LEVEL 140 MMOL/L (136-145)
[2022-10-14 07:42] VITALS: BP 138/62
[2022-10-14] MEDS: MOM 30ML SUSPENSION UDC PO SCH (09:00)
[2022-10-14] MEDS: DOCUSATE SODIUM 100MG CAPSULE PO SCH (09:00)
[2022-10-14] MEDS ORDERED: PERCOCET 5MG/325MG TAB PO PRN ×2 (09:20)
[2022-10-14] MEDS ORDERED: NAPROXEN 250 MG TAB PO PRN (09:30)
[2022-10-14] MEDS: GABAPENTIN 300 MG CAP PO SCH (10:21)
[2022-10-14] MEDS: PANTOPRAZOLE 40MG TAB (PROTONIX) PO SCH (10:21)
[2022-10-14] MEDS: HEPARIN SOD (PORCINE) 5000UNITS/ML 1ML VIAL/SYRINGE SC SCH (10:22)
[2022-10-14 12:30] VITALS: BP 129/64
== END 2022-10-14 16:27 | disposition home or self-care (01) | DRG 167 ==
LOC: M ED 15:04 → M ED INP 16:05 → M PCU 16:27 → M ICU 10-09 18:26 → M PCU 10-12 14:38
PROVIDERS: ADMIT Internal Medicine; ATTEND Internal Medicine
PROC: 0W9930Z Drainage of Right Pleural Cavity with Drainage Device, Percutaneous Approach (ICD-10-PCS; 2022-10-05)
PROC: 0BBC4ZX Excision of Right Upper Lung Lobe, Percutaneous Endoscopic Approach, Diagnostic (ICD-10-PCS; principal; 2022-10-09 16:00)
DX: J93.11 Primary spontaneous pneumothorax (principal); E87.20 Acidosis, unspecified; J43.9 Emphysema, unspecified; F17.210 Nicotine dependence, cigarettes, uncomplicated; M51.26 Other intervertebral disc displacement, lumbar region; E83.51 Hypocalcemia; E87.6 Hypokalemia

== ENCOUNTER → 2022-10-19 | Outpatient (CLI) | payer OTHER ==
[~2022-10-19] MED LIST: ACE65ERTAB PO; ACET-683 PO; GABA-282 PO; GABA-283 PO
== END ==
LOC: M RAD 08:13
PROVIDERS: ATTEND Thoracic Surgery (Cardiothoracic Vascular Surgery)
DX: J93.0 Spontaneous tension pneumothorax (principal); J98.11 Atelectasis
CPT/HCPCS: 71046; G0463

== ENCOUNTER → 2022-10-20 | Outpatient (CLI) | payer OTHER | LOC: M PLARAD 09:37 | PROVIDERS: ATTEND Orthopaedic Surgery | DX: M51.36 Other intervertebral disc degeneration, lumbar region (principal); M51.26 Other intervertebral disc displacement, lumbar region; M46.96 Unspecified inflammatory spondylopathy, lumbar region ==